=== PATIENT | female | born 2000 | race Caucasian/White ===

== ENCOUNTER 2023-11-15 17:08 | Emergency (ER) | payer OTHER, SELFPAY ==
[2023-11-15 17:10] VITALS: BP 129/99; PULSE 101; RESP 16; TEMP 36.4; O2SAT 100; BMI 23.8
[2023-11-15] MEDS: Lidocaine 1% (20 ml mdv) 20 ML Vial INFILT (17:50)
--- NOTE | 2023-11-15 18:21 | EDS_ITS ---
HPI History of Present Illness Chief Complaint: Laceration PFSH PFSH Allergy/AdvReac Type Severity Reaction Status Date / Time No Known Allergies Allergy Verified 11/15/23 17:09 Social History Smoking Status: Never smoker EXAM Physical Exam Const Vital Signs: 11/15/23 17:10 Temperature 97.5 F L Temperature Source Temporal Pulse Rate 101 H Respiratory Rate 16 Blood Pressure 129/99 H Blood Pressure Mean 109 Pulse Ox 100 Oxygen Delivery Method [place] [facility] [place] Medical decision making narrative: HISTORY OF PRESENT ILLNESS: 23-year-old female with up-to-date tetanus presents with right thigh laceration. Notes she was opening knives as a present on the dropped on her right thigh causing a laceration. REVIEW OF SYSTEMS: Pertinent positives: Laceration Pertinent negatives: Numbness tingling PHYSICAL EXAM: Nursing triage notes reviewed, Vital signs reviewed Constitutional: please see mdm Neuro: Intact sensation L1-S1 dermatomal distributions. Intact 5/5 strength in hip flexion (T12-L3). Knee extension (L2-L4). Ankle dorsiflexion (L4-L5). Ankle plantar flexion (S1). Great toe extension (L5). 2+ patellar and Achilles DTRs. Skin: 3 linear lacerations noted to the anterior thigh 1 approximately 5 cm, the other approximate 6 mm using approximately 2 cm in length, no deeper structures involved, and approximately 2 mm deep MEDICAL DECISION MAKING: Chief Complaint: Laceration History obtained from others: Patient's [facility] Narrative: Patient was hemodynamically stable, afebrile, nontoxic-appearing. The patient suffered lacerations to the right thigh On exam there was no evidence of foreign bodies. . There was no evidence of neurovascular injury. Patient had a normal distal vascular exam, and had intact ROM and sensation. There was also no evidence of tendon injury, with normal distal full range of motion, flexion, extension, abduction, abduction. There is no evidence of local joint space involvement at this time. Wound care applied (irrigation and/or local cleansing solution). Laceration repair was then performed please see procedure note. The patient was given signs and symptoms warnings for infection, such as increasing pain, redness, swelling, associated heat, pus or fever. Patient was given instructions for timely follow-up for removal. Patient agreed with the plan of care Procedure: Laceration repair. The procedure was performed by myself. Indication: Wound repair Risks and benefits: risks, benefits and alternatives were discussed Consent: Consent was obtained. Wound Details: 3 linear lacerations noted as above, no deeper structures involved, no foreign bodies. [INSERT - Location, length (in cm), depth (in mm), foreign bodies, deep structure involvement) Anesthesia: 1% lidocaine without epi Wound prep: Patient was prepped and draped in the usual sterile fashion. Tetanus: Already up-to-date Irrigation Solution: Saline Cleaned with chlorhexidine The wound was explored to its base in a bloodless field. Procedure Description: I applied running 4-0 Vicryl sutures to lacerations with close approximation. Patient tolerated the procedure well with no immediate complications The patient and/or family, caregivers express understanding. The patient and/or family, caregivers agrees with the plan. Shared decision making: I will have a discussion with the patient and or visitors regarding risk/benefits of further testing or admission. They will be made aware of of the risk/benefits inherent in this decision they will be given the opportunity to voice understanding. Total critical care time today provided was at least 0 [] minutes. This excludes separately billable procedures. Critical care time (if documented) is secondary to the patient having high probability of clinically significant/life threatening deterioration in the patient's condition which required my urgent intervention. Impression: 1. Leg laceration Dispo: Discharge Discharge Plan Triage Chief Complaint: Laceration ED Provider: Eric Jain Dx/Rx/DC Orders Primary Care Provider: NOT,DEFINED Referrals: NOT,DEFINED [Primary Care Provider] -
[2023-11-15 18:51] VITALS: BP 120/77; PULSE 68; RESP 15; O2SAT 98
== END 2023-11-15 18:52 | disposition home or self-care (01) ==
LOC: ED 18:36
PROVIDERS: Emergency Provider Emergency Medicine; PCP Registered Nurse; Visit Provider Emergency Medicine
DX: S71.111A Laceration without foreign body, right thigh, initial encounter (principal); W26.0XXA Contact with knife, initial encounter
CPT/HCPCS: 99282

== ENCOUNTER 2024-10-29 07:49 | Emergency (ER) | payer BC, SELFPAY ==
[2024-10-29 07:50] VITALS: BP 131/107; PULSE 90; RESP 18; TEMP 37.1; O2SAT 99; BMI 23.2
--- NOTE | 2024-10-29 08:03 | CT_ITS ---
INDICATION: Kidney Stone EXAMINATION: CT ABDOMEN AND PELVIS WITHOUT CONTRAST - CT Abdomen And Pelvis W/O Contrast Injection TECHNIQUE: Helically acquired images were obtained of the abdomen and pelvis without oral or IV contrast. The protocol utilizes one or more of the following dose reduction techniques: automated exposure control, adjustment of mA and/or kV according to patient size,and/or use of iterative reconstruction technique. IV Contrast dosage and agent: None. Oral contrast: None. RADIATION DOSAGE (If Supplied By Facility): CTDIvol = ( 6.06 ) mGy, DLP = ( 272.52 ) mGycm COMPARISON: No relevant prior comparison study available FINDINGS: LOWER CHEST: Lung bases are clear. No cardiomegaly or pericardial effusion. LIVER: Homogeneous. No focal mass. GALLBLADDER AND BILIARY TREE: No calcified gallstones. No gallbladder distension or wall edema. No intra- or extrahepatic biliary ductal dilation. PANCREAS: No focal cystic or solid mass. SPLEEN: Normal size without focal cystic or solid mass. ADRENAL GLANDS: No nodules. KIDNEYS AND URETERS: 3 mm nonobstructing stone in the lower pole of the right kidney. Mild right hydronephrosis. Probably 1 to 2 mm stone in the right ureterovesical junction seen on axial image 134 series 2. Unremarkable left kidney. PERITONEUM: No ascites or free air. No other fluid collection. BOWEL: No evidence of acute appendicitis. No stomach or bowel distension. Thickening of the descending colon likely due to underdistention. No evidence of acute diverticulitis. LYMPH NODES: No enlarged mesenteric or retroperitoneal lymph nodes. VESSELS: Aorta is non-dilated. URINARY BLADDER: Unremarkable. REPRODUCTIVE ORGANS: Retroverted uterus. Mild free fluid in the pelvis. ABDOMINAL WALL: No discrete abdominal or pelvic wall hernia. BONES: No lytic or blastic abnormality. CT/Abdomen/Pelvis without Cont IMPRESSION: 1. Mild right hydronephrosis probably due to 2 mm stone in close to the right ureterovesical junction. 2. Small nonobstructing stone in the right kidney to 3. Mild free fluid in the pelvis. Electronically Signed: Wilbert Reese MD at 10:24 EST ,
--- NOTE | 2024-10-29 08:04 | EX.ED.DYSGE1 ---
HPI History of Present Illness Chief Complaint: Flank Pain Informant: patient Narrative Narrative: 24-year-old female presenting to the emergency room with right flank pain. Patient states that around 2:00 this morning she woke with flank pain on the right side. She notes some intermittent nausea and vomiting. She states that as the night hours progressed the pain seemed to move down towards her pelvis as well. She notes she cannot get comfortable. It is sharp and stabbing. She states there was a couple episodes where the pain seemed to get better but then it came back. She has had prior cholecystectomy. She notes no prior history of kidney stones. She does not know her family history. She denies dysuria or foul smell. Noted that she is only urinating small amounts but frequent urge to urinate PFSH PFSH Home Medications ?Medication ?Instructions ?Recorded ?Last Taken ?Type ondansetron 4 mg disintegrating 4 mg PO Q6H PRN PRN Nausea #15 tabs 10/29/24 Unknown Rx tablet oxycodone-acetaminophen 5 mg-325 1 tab PO Q6H PRN pain 3 days #12 10/29/24 Unknown Rx mg tablet (Percocet) tabs Allergy/AdvReac Type Severity Reaction Status Date / Time No Known Allergies Allergy Verified 10/29/24 07:50 Surgical History (Updated 10/29/24 @ 08:[address] Spencer Quintana DO) S/P cholecystectomy Social History Smoking Status: Never smoker ROS ROS ED Constitutional Constitutional ED: Denies chills, fever(s) or weight loss Eyes Eyes: Denies change in vision or diplopia ENT ENT ED: Denies ear pain, rhinorrhea or sore throat Cardiovascular Cardiovascular: Denies chest pain, orthopnea, palpitations or racing heartbeat Respiratory/Chest Respiratory/Chest: Denies cough, dyspnea or orthopnea Gastrointestinal Gastrointestinal: Reports abdominal pain, nausea and vomiting; Denies diarrhea Genitourinary Genitourinary ED: Reports urinary frequency; Denies dysuria or hematuria Musculoskeletal Musculoskeletal: Reports back pain; Denies arthralgias or myalgias Integumentary Denies abscess or rash Neurologic Neurologic: Denies headache(s) or weakness Psychiatric Psychiatric: Denies anxiety, depression, suicidal ideation or suicidal thoughts Endocrine Endocrinology: Denies polydipsia, polyphagia or polyuria Allergic/Immunologic Allergic/Immunologic ED: Denies mouth swelling, tongue swelling or urticaria EXAM Physical Exam Narrative Exam Narrative: Patient appears uncomfortable in the bed. Const Vital Signs: 10/29/24 07:50 10/29/24 09:53 Temperature 98.7 F 98.2 F Temperature Source Oral Pulse Rate 90 78 Respiratory Rate 18 19 H Blood Pressure 131/107 H 130/98 H Blood Pressure Mean 115 108 Pulse Ox 99 97 Oxygen Delivery Method Room Air Positive well nourished and well developed General Appearance ED: well developed HEENT Reports normocephalic, head/scalp atraumatic and moist mucous membranes Eyes PERRL and EOMs intact bilaterally Neck no lymphadenopathy, supple and no JVD Resp normal respiratory effort and clear to auscultation bilaterally Cardio regular rate, regular rhythm and no murmurs GI normal to inspection, nondistended, normoactive bowel sounds and non-tender Palpation: soft Back/Spine normal ROM General Back: CVA tenderness right Extremity normal to inspection General Extremety ED: Negative for edema General Extremity: Negative for edema Neuro oriented x3 and CN's II-XII intact bilaterally Sensorium / Orientation: alert Motor Exam: strength 5/5 throughout Psych mental status grossly normal Mood & Affect: Negative for depressed or tearful Skin no rashes or lesions noted and no wounds MDM MDM MDM Narrative Medical decision making narrative: Differential diagnosis includes but not limited to kidney stone UTI/pyelonephritis appendicitis colitis acute kidney injury Patient's white count 11.3 normal creatinine normal electrolytes test is negative urinalysis greater than 100 red cells 25-50 squamous cells with 3+ bacteria 0-5 white cells negative nitrates. I believe this is contaminated specimen but does demonstrate hematuria. CT abdomen pelvis was obtained this was reviewed by myself. There is a distal 2 to 3 mm stone in the right ureter. There is some associated hydronephroureter. There is a stone in the right kidney. There was delay in getting the CT read by radiology but I felt confident of the diagnosis. Patient received Toradol Zofran and morphine and is improved on repeat examination. I will write for pain and nausea medication for home use. I believe this stone should be able to be passed in the next couple days. Would recommend returning if worsening or concerns follow-up as needed History & Record Review Discussion w/independent historian: Patient and Significant other Lab Data Attestation: I reviewed the patient's lab results. Labs: Laboratory Results - last 24 hr 10/29/24 10/29/24 08:10 08:15 WBC 11.3 H RBC 4.82 Hgb 13.7 Hct 43.1 MCV 89.4 MCH 28.4 MCHC 31.8 L RDW Std Deviation 41.9 RDW Coeff of Florentino 12.9 Plt Count 308 MPV 11.3 Immature Gran % (Auto) 0.400 Neut % (Auto) 85.8 H Lymph % (Auto) 7.3 L [place] % (Auto) 6.0 Eos % (Auto) 0.1 Baso % (Auto) 0.4 Absolute Neuts (auto) 9.7 H Absolute Lymphs (auto) 0.83 Nucleated RBC % 0 Sodium 135 L Potassium 4.1 Chloride 105 Carbon Dioxide 25.0 Anion Gap 5 BUN 14 Creatinine 0.95 Estim Creat Clear Calc 65.02 Est GFR (MDRD) Af Amer 92 Est GFR (MDRD) Non-Af 76 BUN/Creatinine Ratio 14.7 Glucose 107 H Calcium 9.2 Serum , Qual NEGATIVE Urine Color Yellow Urine Clarity Cloudy Urine pH 6.0 Ur Specific [place] 1.020 Urine Protein 30 H Urine Glucose (UA) Normal Urine Ketones 5 H Urine Occult Blood 250 H Urine Nitrite Negative Urine Bilirubin Negative Urine Urobilinogen 1 H Ur Leukocyte Esterase 25 H Urine RBC > 100 SEEN Urine WBC 0-5 SEEN Ur Squamous Epith Cells 25-50 SEEN Urine Bacteria 3+ Urine Mucus 0 SEEN Radiography Diagnostic Testing: Clinical Impression(s) from Imaging Studies Abdomen/Pelvis CT 10/29/24 08:03 IMPRESSION: 1. Mild right hydronephrosis probably due to 2 mm stone in close to the right ureterovesical junction. 2. Small nonobstructing stone in the right kidney to 3. Mild free fluid in the pelvis. Electronically Signed: Wilbert Reese MD at 10:24 EST , Discharge Plan Triage Chief Complaint: Flank Pain ED Provider: Spencer Quintana Dx/Rx/DC Orders Clinical Impression: Acute right flank pain, Ureterolithiasis Instructions: ED Kidney Stone with Pain Prescriptions: New oxycodone-acetaminophen [Percocet] 5-325 mg tablet 1 tab PO Q6H PRN (Reason: pain) 3 Days Qty: 12 0RF ondansetron 4 mg tablet,disintegrating 4 mg PO Q6H PRN PRN (Reason: Nausea) Qty: 15 0RF Primary Care Provider: Sylvia Mendosa NP Referrals: Sylvia Menodsa NP, CUSTOMER STRATEGY MANAGER-C [Primary Care Provider] - As Needed Print Language: Albanian Disposition Disposition: Home, Self Care Discharge Date/Time: 10/29/24 09:58
[2024-10-29 08:13] LABS: Mucous, Urine 0 SEEN /hpf (<or=2+)
[2024-10-29 08:14] LABS: Glucose, Dipstick Normal (Normal); Ketone-Dipstick 5 mg/dl (Negative); Leukocyte Esterase-Dipstick 25 /ul (Negative); Nitrite-Dipstick Negative (Negative); Occult Blood-Urine 250 /ul (Negative); Protein-Dipstick 30 mg/dl (Negative); Urine Bilirubin Dipstick Negative (Negative); Urine Urobilinogen 1 mg/dl (Normal)
[2024-10-29] MEDS: 0.9% Normal Saline (1000mL) 1,000 ML 999 ML IV (08:17)
[2024-10-29] MEDS: Ketorolac 30 MG/ML Syringe IV (08:18)
[2024-10-29] MEDS: Ondansetron 4 MG/2 ML Vial IV (08:18)
[2024-10-29] MEDS: Morphine 4 MG/ML Syringe IV (08:19)
[2024-10-29 08:21] LABS: Color, Urine Yellow (Yellow); Urine Clarity Cloudy (Clear)
[2024-10-29 08:28] LABS: Bacteria 3+ /hpf (None Seen); Red Blood Cells-Urine > 100 SEEN /hpf (0-5); Squamous Epithelial Cells - UA 25-50 SEEN /hpf (5-10); White Blood Cells 0-5 SEEN /hpf (0-5)
[2024-10-29 08:31] LABS: Absolute Lymphocyte Count 0.83 X10^3/uL (0.83-4.51); Absolute Neutrophil Count 9.7 X10^3/uL (2.0-7.7); Basophil# 0.05 X10^3/uL; Basophil% 0.4 % (0-1); Eosinophil# 0.01 X10^3/uL; Eosinophils% 0.1 % (0-5); Hematocrit 43.1 % (37-47); Hemoglobin 13.7 g/dL (12.0-15.0); Lymphocyte # 0.83 X10^3/ul (0.83-4.51); Lymphocyte % 7.3 % (19-41); Mean Corp Hgb Conc 31.8 g/dL (32-36); Mean Corpuscular Hgb 28.4 pg (27.0-32.0); Mean Corpuscular Volume 89.4 fL (81-99); Mean Platelet Vol. 11.3 fl (6.2-12.0); Monocyte# 0.68 X10^3/uL; NRBC Flagged by Analyzer 0 % (0-5); Neutrophil # 9.72 X10^3/uL (2.7-7.7); Neutrophil % 85.8 % (47-70); Platelet Count 308 K/mm3 (150-450); RBC Distribution Width CV 12.9 % (11.6-14.6); RBC Distribution Width SD 41.9 fl (35.1-43.9); Red Blood Count 4.82 M/mm3 (4.2-5.4); White Blood Count 11.3 K/mm3 (4.4-11.0)
[2024-10-29 08:58] LABS: Internal QC Validated? YES +Cl - CLEAR BKGD; Pregnancy, Serum, hCG Quali. NEGATIVE Negative
[2024-10-29 09:01] LABS: Anion Gap 5 (5-15); BUN 14 mg/dL (7-18); BUN/Creat Ratio 14.7 RATIO (10-20); Calcium,Total 9.2 mg/dL (8.5-10.1); Chloride 105 mmol/L (98-107); Creatinine, Serum 0.95 mg/dL (0.55-1.02); EST Glomerular Filtration Rate 76 mL/min (>60); Est Glom Filt Rate - Afr Amer 92 mL/min (>60); Estimated Creatinine Clearance 65.02 ml/min; Glucose 107 mg/dL (74-106); Potassium 4.1 mmol/L (3.5-5.1); Sodium Level 135 mmol/L (136-145)
[2024-10-29 09:53] VITALS: BP 130/98; PULSE 78; RESP 19; TEMP 36.8; O2SAT 97
== END 2024-10-29 09:58 | disposition home or self-care (01) ==
PROVIDERS: Emergency Provider Emergency Medicine; PCP Registered Nurse; Visit Provider Emergency Medicine
DX: N13.2 Hydronephrosis with renal and ureteral calculous obstruction (principal); Z90.49 Acquired absence of other specified parts of digestive tract
CPT/HCPCS: 74176; 80048; 81001; 84703; 85025; 96361; 96374; 96375; 99282; A4216; J2405

== ENCOUNTER 2024-12-27 08:13 | Emergency (ER) | payer BC, SELFPAY ==
[2024-12-27 08:13] VITALS: BP 103/80; PULSE 83; RESP 16; TEMP 36.9; O2SAT 100; BMI 21.9
--- NOTE | 2024-12-27 08:34 | EDS_ITS ---
HPI HPI - Female History of Present Illness Chief Complaint: Flank Pain Narrative Narrative: 24-year-old female presents with right flank pain that she had at 1:00 this morning. Yesterday she had mild dysuria. She states that she was having urinary frequency but only only in small amounts, and may have had hematuria as well. Of note, she was diagnosed with her first kidney stone back in October of last year, approximately 1-1/2 months ago. She states that she passed a 3 mm stone on her own because her pain had resolved, and she was no longer having dysuria. She never followed up with urology. Yesterday, she took antinausea medication and some leftover pain pills because she was experiencing the dysuria and hematuria. She awoke this morning at 1 AM, approximately 7-1/2 hours ago with right flank pain. Is mainly in her right side radiating towards the front. She has had prior cholecystectomy. She states that she feels she either has a UTI or another kidney stone. PFSH PFSH Home Medications ?Medication ?Instructions ?Recorded ?Last Taken ?Type ondansetron 4 mg disintegrating 4 mg PO Q6H PRN PRN Na usea #15 tabs 10/29/24 Unknown Rx tablet oxycodone-acetaminophen 5 mg-325 1 tab PO Q6H PRN pain 3 days #12 10/29/24 Unknown Rx mg tablet (Percocet) tabs ketorolac 10 mg tablet 10 mg PO TID PRN pain 5 days #15 12/27/24 Unknown Rx tabs oxycodone-acetaminophen 5 mg-325 1 tab PO Q6H PRN pain 3 days #12 12/27/24 Unknown Rx mg tablet (Percocet) tabs tamsulosin 0.4 mg capsule (Flomax) 0.4 mg PO QHS #10 c aps 12/27/24 Unknown Rx Allergy/AdvReac Type Severity Reaction Status Date / Time No Known Allergies Allergy Verified 12/27/24 08:13 Surgical History S/P cholecystectomy Social History Smoking Status: Never smoker ROS ROS ED ROS Narrative Review of systems positive for dysuria, urinary frequency, small amount of urination. Reported hematuria yesterday. Positive right flank pain, no exacerbating or alleviating factors. Flank pain radiates towards front. No fevers or chills, no nausea or vomiting. EXAM Physical Exam Const Vital Signs: 12/27/24 08:13 12/27/24 10:13 Temperature 98.4 F Temperature Source Oral Pulse Rate 83 76 Respiratory Rate 16 16 Blood Pressure 103/80 129/78 H Blood Pressure Mean 87 95 Pulse Ox 100 98 Oxygen Delivery Method Room Air Room Air MDM MDM MDM Narrative Medical decision making narrative: Differential diagnosis includes but not limited to UTI versus pyelonephritis versus ureterolithiasis. Comprehensive workup was pursued. Do feel CT imaging and laboratory work is indicated as well as urinalysis and serum . She will be administered ketorolac intravenously after negative test. I reviewed her laboratory work and she has normal white count of 11.0 with hemoglobin normal at 12.9, electrolyte panel is grossly unremarkable except for creatinine slightly elevated at 1.05 and sodium 135 which I think is nonspecific. Serum negative. Urinalysis negative for infection with 0 WBCs and 0 bacteria. I do not feel antibiotics are indicated. I reviewed the radiology report of the CT of the flank which shows a 3 mm distal right stone with hydronephrosis. She did require the additional 15 mg of Toradol as well as morphine. At this point in time, I feel she can be discharged to follow-up with urology. She was given the number to Dr. Welsh. She was also written prescriptions for Toradol, Percocet, and Flomax. She was given return precautions as well. She is given a note to be off work for today in the next 2 days. Return instructions to the emergency department were reviewed. Disposition is discharged in stable condition. History & Record Review Discussion w/independent historian: Patient Lab Data Attestation: I reviewed the patient's lab results. Labs: Laboratory Results - last 24 hr 12/27/24 12/27/24 09:13 09:15 WBC 11.0 RBC 4.70 Hgb 12.9 Hct 39.7 MCV 84.5 MCH 27.4 MCHC 32.5 RDW Std Deviation 41.0 RDW Coeff of Florentino 13.2 Plt Count 265 MPV 10.7 Immature Gran % (Auto) 0.500 Neut % (Auto) 78.0 H Lymph % (Auto) 10.5 L [place] % (Auto) 9.9 Eos % (Auto) 0.6 Baso % (Auto) 0.5 Absolute Neuts (auto) 8.5 H Absolute Lymphs (auto) 1.15 Nucleated RBC % 0 Sodium 135 L Potassium 3.8 Chloride 105 Carbon Dioxide 26.0 Anion Gap 4 L BUN 12 Creatinine 1.05 H Estim Creat Clear Calc 58.83 Est GFR (MDRD) Af Amer 82 Est GFR (MDRD) Non-Af 68 BUN/Creatinine Ratio 11.4 Glucose 91 Calcium 8.9 Serum , Qual NEGATIVE Urine Color Straw Urine Clarity Clear Urine pH 7.0 Ur Specific [place] 1.005 Urine Protein Negative Urine Glucose (UA) Normal Urine Ketones Negative Urine Occult Blood Negative Urine Nitrite Negative Urine Bilirubin Negative Urine Urobilinogen Normal Ur Leukocyte Esterase 25 H Urine RBC 0 SEEN Urine WBC 0 SEEN Ur Squamous Epith Cells 0-5 SEEN Urine Bacteria 0 SEEN Urine Mucus 0 SEEN Radiography Diagnostic Testing: Clinical Impression(s) from Imaging Studies Abdomen/Pelvis CT 12/27/24 10:25 IMPRESSION: 3 mm obstructing calculus of the distal ureter resulting in moderate hydroureteronephrosis. Reading Location: [facility] Discharge Plan Triage Chief Complaint: Flank Pain ED Provider: Neftayl Tucker Dx/Rx/DC Orders Clinical Impression: Ureteral stone with hydronephrosis, Right flank pain Instructions: Kidney Stones: Are You at Risk?, Understanding Kidney Stones, ED Kidney Stone with Pain Prescriptions: New oxycodone-acetaminophen [Percocet] 5-325 mg tablet 1 tab PO Q6H PRN (Reason: pain) 3 Days Qty: 12 0RF tamsulosin [Flomax] 0.4 mg capsule 0.4 mg PO QHS Qty: 10 0RF ketorolac 10 mg tablet 10 mg PO TID PRN (Reason: pain) 5 Days Qty: 15 0RF No Action oxycodone-acetaminophen [Percocet] 5-325 mg tablet 1 tab PO Q6H PRN (Reason: pain) 3 Days Qty: 12 0RF ondansetron 4 mg tablet,disintegrating 4 mg PO Q6H PRN PRN (Reason: Nausea) Qty: 15 0RF Stand Alone Forms: ED Work / School Excuse Primary Care Provider: Sylvia Mendosa CERTIFIED ENDOSCOPY TECHNICIAN Referrals: Jane Welsh MD [Med Staff - Active Staff] - 5-7 Days Sylvia Mendosa NP, CERTIFIED ENDOSCOPY TECHNICIAN-C [Primary Care Provider] - Activity Restrictions/Additional Instructions: Follow-up with urology within the next week. Return to the emergency department with fever, increased pain, new or worsening symptoms. Print Language: German Disposition Disposition: Home, Self Care
[2024-12-27] MEDS: Ketorolac 15 MG/ML Vial IV ×2 (09:17→10:59)
[2024-12-27 09:23] LABS: Bacteria 0 SEEN /hpf (None Seen); Mucous, Urine 0 SEEN /hpf (<or=2+); Red Blood Cells-Urine 0 SEEN /hpf (0-5); White Blood Cells 0 SEEN /hpf (0-5)
[2024-12-27 09:26] LABS: Absolute Lymphocyte Count 1.15 X10^3/uL (0.83-4.51); Absolute Neutrophil Count 8.5 X10^3/uL (2.0-7.7); Basophil# 0.06 X10^3/uL; Basophil% 0.5 % (0-1); Eosinophil# 0.07 X10^3/uL; Eosinophils% 0.6 % (0-5); Hematocrit 39.7 % (37-47); Hemoglobin 12.9 g/dL (12.0-15.0); Lymphocyte # 1.15 X10^3/ul (0.83-4.51); Lymphocyte % 10.5 % (19-41); Mean Corp Hgb Conc 32.5 g/dL (32-36); Mean Corpuscular Hgb 27.4 pg (27.0-32.0); Mean Corpuscular Volume 84.5 fL (81-99); Mean Platelet Vol. 10.7 fl (6.2-12.0); Monocyte# 1.08 X10^3/uL; Monocyte% 9.9 % (0-10); NRBC Flagged by Analyzer 0 % (0-5); Neutrophil # 8.53 X10^3/uL (2.7-7.7); Platelet Count 265 K/mm3 (150-450); RBC Distribution Width CV 13.2 % (11.6-14.6)
[2024-12-27 09:30] LABS: Color, Urine Straw (Yellow); Glucose, Dipstick Normal (Normal); Ketone-Dipstick Negative (Negative); Leukocyte Esterase-Dipstick 25 /ul (Negative); Nitrite-Dipstick Negative (Negative); Occult Blood-Urine Negative /ul (Negative); Protein-Dipstick Negative (Negative); Specific Gravity, Urine 1.005 (1.002-1.030); Urine Bilirubin Dipstick Negative (Negative); Urine Clarity Clear (Clear); Urine Urobilinogen Normal (Normal)
[2024-12-27 09:36] LABS: Internal QC Validated? YES +Cl - CLEAR BKGD; Pregnancy, Serum, hCG Quali. NEGATIVE Negative; Record Kit Lot#, Serum Preg. 856586
[2024-12-27 09:42] LABS: Anion Gap 4 (5-15); BUN 12 mg/dL (7-18); BUN/Creat Ratio 11.4 RATIO (10-20); Calcium,Total 8.9 mg/dL (8.5-10.1); Chloride 105 mmol/L (98-107); Creatinine, Serum 1.05 mg/dL (0.55-1.02); EST Glomerular Filtration Rate 68 mL/min (>60); Est Glom Filt Rate - Afr Amer 82 mL/min (>60); Estimated Creatinine Clearance 58.83 ml/min; Glucose 91 mg/dL (74-106); Potassium 3.8 mmol/L (3.5-5.1); Sodium Level 135 mmol/L (136-145)
[2024-12-27 09:43] LABS: Squamous Epithelial Cells - UA 0-5 SEEN /hpf (5-10)
[2024-12-27 10:13] VITALS: BP 129/78; PULSE 76; RESP 16; O2SAT 98
--- NOTE | 2024-12-27 10:25 | CT_ITS ---
EXAM: CT Abdomen and Pelvis Without Intravenous Contrast CLINICAL INDICATION: TECHNIQUE: Axial computed tomography images of the abdomen and pelvis without intravenous contrast. This CT exam was performed using one or more of the following dose reduction techniques: automated exposure control, adjustment of the mA and/or kV according to patient size, and/or use of iterative reconstruction technique. COMPARISON: No relevant prior studies available. FINDINGS: LUNG BASES: Unremarkable. No mass. No consolidation. ABDOMEN: LIVER: Unremarkable. GALLBLADDER AND BILE DUCTS: Unremarkable. No calcified stones. No ductal dilation. PANCREAS: Unremarkable. No ductal dilation. SPLEEN: Unremarkable. No splenomegaly. ADRENALS: Unremarkable. No mass. KIDNEYS AND URETERS: 3 mm obstructing calculus of the distal ureter resulting in moderate hydroureteronephrosis. STOMACH AND BOWEL: Unremarkable. No obstruction. No mucosal thickening. PELVIS: APPENDIX: No findings to suggest acute appendicitis. BLADDER: Unremarkable. No stones. REPRODUCTIVE: Unremarkable as visualized. ABDOMEN and PELVIS: INTRAPERITONEAL SPACE: Unremarkable. No free air. No significant fluid collection. BONES/JOINTS: No acute fracture. No dislocation. SOFT TISSUES: Unremarkable. VASCULATURE: Unremarkable. No abdominal aortic aneurysm. LYMPH NODES: Unremarkable. No enlarged lymph nodes. CT/Abdomen/Pelvis without Cont IMPRESSION: 3 mm obstructing calculus of the distal ureter resulting in moderate hydrourete ronephrosis. Reading [facility]
[2024-12-27] MEDS: Morphine 4 MG/ML Syringe IV (10:59)
[2024-12-27 11:44] VITALS: BP 105/78; PULSE 78; RESP 16; TEMP 36.6; O2SAT 98
== END 2024-12-27 11:46 | disposition home or self-care (01) ==
PROVIDERS: Emergency Provider Emergency Medicine; PCP Registered Nurse; Visit Provider Emergency Medicine
DX: N13.2 Hydronephrosis with renal and ureteral calculous obstruction (principal); Z90.49 Acquired absence of other specified parts of digestive tract
CPT/HCPCS: 74176; 80048; 81001; 84703; 85025; 96374; 96375; 96376; 99282; A4216

== ENCOUNTER → 2025-04-10 | Outpatient (CLI) | payer BC, SELFPAY ==
[2025-04-10 18:13] LABS: CRP < 3.00 mg/L (0.0-3.0)
[2025-04-12 16:09] LABS: Endomysial Antibody IgA Negative (Negative); Immunoglobulin A 427 mg/dL (87-352); t-Transglutaminase IgA <2 U/mL (0-3)
== END | disposition home or self-care (01) ==
LOC: LAB 16:14
PROVIDERS: PCP Registered Nurse
DX: R19.7 Diarrhea, unspecified (principal); R10.9 Unspecified abdominal pain
CPT/HCPCS: 36415; 82784; 83516; 86003; 86005; 86140; 86255